=== PATIENT | female | born 1980 | race American Indian/Alaskan Native ===

== ENCOUNTER 2018-01-14 03:41 | Emergency (ER) | payer OTHER ==
[2018-01-14] MEDS ORDERED: ZOFRAN ONE (05:11)
[2018-01-14] MEDS ORDERED: TORADOL ONE (05:11)
[2018-01-14] MEDS ORDERED: SODIUM CHLORIDE FLUSH SYRINGE 10 ML IV PRN (05:19)
[2018-01-14] MEDS ORDERED: ZOFRAN IV ONE (05:30)
[2018-01-14] MEDS ORDERED: TORADOL IV ONE (05:31)
--- NOTE | 2018-01-14 05:36 | Emergency Department Report ---
Stated Complaint: CHEST PAIN - HPI History of Present Illness: 37-year-old [place] female comes to the emergency room complaining of chest pain/upper abdominal pain. Patient reports that the pain woke her up this morning. She reports the pain is a 10 out of 10. Patient has no past medical history of any cardiac issues. - ROS Review of Systems: Chest pain/upper abdominal pain that she feels worse in her back Nausea/vomiting - Exam Vital Signs: Vital Signs 01/14/18 04:13 Temperature 97.9 F Pulse Rate 74 Respiratory 16 Rate Blood Pressure 103/70 [Right] O2 Sat by Pulse 100 Oximetry Physical Exam: Patient's alert and oriented appears to be uncomfortable. Tearful Normocephalic atraumatic Pupils are equal round react to light and accommodation. Heart: S1-S2 regular rate and rhythm no murmurs appreciated Respiratory clear truck station bilateral, reproducible midsternal chest tenderness MSE screening note: Focused history and physical exam performed. Due to findings the following was ordered: Labs have been ordered chest x-ray, EKGs been ordered. IV Toradol and Zofran. Patient will be evaluated by the main ER ED Disposition for MSE Condition: Stable
[2018-01-14 06:03] LABS: Basophils % (Auto) 0.3 % (0.0-1.8); Eosinophils % (Auto) 0.1 % (0.0-4.3); Hematocrit 42.6 % (30.3-42.9); Hemoglobin 14.6 gm/dl (10.1-14.3); Lymphocytes # (Auto) 0.9 K/mm3 (1.2-5.4); Lymphocytes % (Auto) 8.6 % (13.4-35.0); Mean Corpuscular HGB Conc 34 % (30-34); Mean Corpuscular Hemoglobin 30 pg (28-32); Mean Corpuscular Volume 86 fl (79-97); Monocytes # (Auto) 0.5 K/mm3 (0.0-0.8); Monocytes % (Auto) 4.5 % (0.0-7.3); Platelet Count 228 K/mm3 (140-440); Red Blood Count 4.94 M/mm3 (3.65-5.03); Red Cell Distribution Width 13.5 % (13.2-15.2)
--- NOTE | 2018-01-14 06:31 | XRay Report ---
FINAL REPORT EXAM: XR CHEST 1V AP HISTORY: Chest Pain TECHNIQUE: A single view the chest was obtained. FINDINGS: Heart size and mediastinum appear normal. The lungs are clear. Pleural fluid is not seen. The bones and soft tissues are well maintained. IMPRESSION: No active chest disease.
[2018-01-14 06:48] LABS: BUN/Creatinine Ratio 20; Blood Urea Nitrogen 10 mg/dL (7-17); Calcium 9.3 mg/dL (8.4-10.2); Hemolysis Index 8
[2018-01-14 07:47] LABS: INR 0.86 (0.87-1.13)
[2018-01-14 07:48] LABS: Partial Thromboplastin Time 31.4 Sec. (24.2-36.6)
[2018-01-14 11:32] VITALS: BP 112/48
[2018-01-14] MEDS ORDERED: BENTYL PO ONE (11:55)
[2018-01-14] MEDS ORDERED: CARAFATE PO ONE (11:55)
[2018-01-14] MEDS ORDERED: PEPCID IV ONE (11:55)
[2018-01-14] MEDS ORDERED: ALUM-MAG HYDROX-SIMETH 200-200-20MG/5ML PO ONE (11:55)
--- NOTE | 2018-01-14 11:56 | Emergency Department Report ---
ED Chest Pain HPI - General Chief Complaint: Chest Pain Stated Complaint: CHEST PAIN Time Seen by Provider: 01/14/18 11:36 Source: patient, RN notes reviewed, old records reviewed Mode of arrival: Ambulatory Limitations: No Limitations - History of Present Illness Initial Comments: This is a 37-year-old female. The patient is previously unknown to this provider. She does not have a primary care doctor. She denies chronic medical conditions. Patient presents to the ER with a complaint of epigastric and subxiphoid chest pain, that radiated down to the epigastric region. The chest pain has been intermittent since 12:00 in the morning. He does not have exacerbating or relieving factors. She vomited 2, but has no shortness of breath or diaphoresis. There is no leg pain, no leg swelling, no DVT or pulmonary embolus risk factors, no recent cocaine use, no recent aspirin use, patient given Zofran and Toradol prior to my evaluation which improved her symptoms. Her symptoms do not have exacerbating or relieving factors otherwise. There is no family history of cardiovascular disease that she is aware of. MD Complaint: chest pain -: Gradual Pain Location: substernal, epigastric Pain Radiation: abdomen Severity scale (0 -10): 10 Quality: aching Consistency: intermittent Improves With: medication-other Worsens With: nothing re: nausea, vomting. denies: diaphoresis, dyspnea, sense of impending doom Treatments Prior to Arrival: aspirin - Related Data Previous Rx's Medication Instructions Recorded Last Taken Type Acetaminophen [Tylenol Arthritis] 650 mg PO Q6HR PRN #30 tablet.er 01/14/18 Unknown Rx Aspirin [Aspirin BABY CHEW TAB] 81 mg PO QDAY #30 tab.chew 01/14/18 Unknown Rx Famotidine [Pepcid] 20 mg PO BID #30 tablet 01/14/18 Unknown Rx Ondansetron [Zofran Odt] 4 mg PO Q8HR PRN #20 tab.rapdis 01/14/18 Unknown Rx Allergies Allergy/AdvReac Type Severity Reaction Status Date / Time No Known Allergies Allergy Verified 01/14/18 05:32 Heart Score - HEART Score History: Slightly suspicious EKG: Non-specific Age: < 45 Risk factors: No known risk factors Troponin: < normal limit HEART Score: 1 - Critical Actions Critical Actions: 0-3 pts:0.9-1.7%risk of adverse cardiac event.Candidate for discharge ED Review of Systems ROS: Stated complaint: CHEST PAIN Other details as noted in HPI Constitutional: denies: fever Eyes: denies: vision change ENT: denies: epistaxis Respiratory: denies: cough, shortness of breath Cardiovascular: chest pain Gastrointestinal: abdominal pain, nausea, vomiting Genitourinary: denies: dysuria Musculoskeletal: denies: back pain Skin: denies: lesions Neurological: denies: weakness ED Past Medical Hx - Past Medical History Previous Medical History?: No - Surgical History Past Surgical History?: Yes Additional Surgical History: X1 - Social History Smoking Status: Current Every Day Smoker Substance Use Type: None - Medications Home Medications: Home Medications Medication Instructions Recorded Confirmed Last Taken Type Acetaminophen [Tylenol Arthritis] 650 mg PO Q6HR PRN #30 tablet.er 01/14/18 Unknown Rx Aspirin [Aspirin BABY CHEW TAB] 81 mg PO QDAY #30 tab.chew 01/14/18 Unknown Rx Famotidine [Pepcid] 20 mg PO BID #30 tablet 01/14/18 Unknown Rx Ondansetron [Zofran Odt] 4 mg PO Q8HR PRN #20 tab.rapdis 01/14/18 Unknown Rx ED Physical Exam - General Limitations: No Limitations General appearance: alert, in no apparent distress - Head Head exam: Present: atraumatic, normocephalic - Eye Eye exam: Present: normal appearance, PERRL, EOMI. Absent: nystagmus - ENT ENT exam: Present: normal exam, normal orophraynx, mucous membranes moist, normal external ear exam - Neck Neck exam: Present: normal inspection, full ROM - Respiratory Respiratory exam: Present: normal lung sounds bilaterally. Absent: respiratory distress - Cardiovascular Cardiovascular Exam: Present: regular rate, normal rhythm, normal heart sounds. Absent: systolic murmur, diastolic murmur, rubs, gallop - GI/Abdominal GI/Abdominal exam: Present: soft, normal bowel sounds. Absent: distended, tenderness, guarding, rebound, rigid, pulsatile mass - Extremities Exam Extremities exam: Present: normal inspection, full ROM, normal capillary refill. Absent: pedal edema, joint swelling, calf tenderness - Back Exam Back exam: Present: normal inspection, full ROM. Absent: tenderness, CVA tenderness (R), paraspinal tenderness, vertebral tenderness - Neurological Exam Neurological exam: Present: alert, oriented X3, CN II-XII intact, normal gait, other (Extraocular movements intact. Tongue midline. No facial droop. Facial sensation intact to light touch in the V1, V2, V3 distribution bilaterally. 5 and 5 strength in 4 extremities.. Sensation is intact to light touch in 4 extremities.). Absent: motor sensory deficit - Psychiatric Psychiatric exam: Present: normal affect, normal mood - Skin Skin exam: Present: warm, dry, intact, normal color. Absent: rash ED Course Vital Signs 01/14/18 01/14/18 04:13 11:31 Temperature 97.9 F Pulse Rate 74 88 Respiratory 16 16 Rate Blood Pressure 103/70 112/48 [Right] O2 Sat by Pulse 100 98 Oximetry LAURA score - Laura Score Age > 65: (0) No Aspirin use within the Past 7 Days: (0) No 3 or more CAD Risk Factors: (0) No 2 or more Angina events in past 24 hrs: (0) No Known CAD with more than 50% Stenosis: (0) No Elevated Cardiac Markers: (0) No ST Deviation Greater than 0.5mm: (0) No LAURA Score: 0 ED Medical Decision Making - Lab Data Result diagrams: 01/14/18 05:51 01/14/18 05:51 Vital Signs 01/14/18 01/14/18 04:13 11:31 Temperature 97.9 F Pulse Rate 74 88 Respiratory 16 16 Rate Blood Pressure 103/70 112/48 [Right] O2 Sat by Pulse 100 98 Oximetry Lab Results 01/14/18 01/14/18 01/14/18 Range/Units 05:51 05:51 05:51 WBC 10.3 (4.5-11.0) K/mm3 RBC 4.94 (3.65-5.03) M/mm3 Hgb 14.6 H (10.1-14.3) gm/dl Hct 42.6 (30.3-42.9) % MCV 86 (79-97) fl MCH 30 (28-32) pg MCHC 34 (30-34) % RDW 13.5 (13.2-15.2) % Plt Count 228 (140-440) K/mm3 Lymph % (Auto) 8.6 L (13.4-35.0) % Mower % (Auto) 4.5 (0.0-7.3) % Eos % (Auto) 0.1 (0.0-4.3) % Baso % (Auto) 0.3 (0.0-1.8) % Lymph # 0.9 L (1.2-5.4) K/mm3 Mower # 0.5 (0.0-0.8) K/mm3 Eos # 0.0 (0.0-0.4) K/mm3 Baso # 0.0 (0.0-0.1) K/mm3 Seg Neutrophils % 86.5 H (40.0-70.0) % Seg Neutrophils # 8.9 H (1.8-7.7) K/mm3 PT (12.2-14.9) Sec. INR (0.87-1.13) APTT (24.2-36.6) Sec. Sodium 138 (137-145) mmol/L Potassium 3.9 (3.6-5.0) mmol/L Chloride 99.0 (98-107) mmol/L Carbon Dioxide 25 (22-30) mmol/L Anion Gap 18 mmol/L BUN 10 (7-17) mg/dL Creatinine 0.5 L (0.7-1.2) mg/dL Estimated GFR > 60 ml/min BUN/Creatinine Ratio 20 % Glucose 128 H (65-100) mg/dL Calcium 9.3 (8.4-10.2) mg/dL Troponin T < 0.010 (0.00-0.029) ng/mL 01/14/18 01/14/18 Range/Units 07:10 12:01 WBC (4.5-11.0) K/mm3 RBC (3.65-5.03) M/mm3 Hgb (10.1-14.3) gm/dl Hct (30.3-42.9) % MCV (79-97) fl MCH (28-32) pg MCHC (30-34) % RDW (13.2-15.2) % Plt Count (140-440) K/mm3 Lymph % (Auto) (13.4-35.0) % Mower % (Auto) (0.0-7.3) % Eos % (Auto) (0.0-4.3) % Baso % (Auto) (0.0-1.8) % Lymph # (1.2-5.4) K/mm3 Mower # (0.0-0.8) K/mm3 Eos # (0.0-0.4) K/mm3 Baso # (0.0-0.1) K/mm3 Seg Neutrophils % (40.0-70.0) % Seg Neutrophils # (1.8-7.7) K/mm3 PT 12.1 L (12.2-14.9) Sec. INR 0.86 L (0.87-1.13) APTT 31.4 (24.2-36.6) Sec. Sodium (137-145) mmol/L Potassium (3.6-5.0) mmol/L Chloride (98-107) mmol/L Carbon Dioxide (22-30) mmol/L Anion Gap mmol/L BUN (7-17) mg/dL Creatinine (0.7-1.2) mg/dL Estimated GFR ml/min BUN/Creatinine Ratio % Glucose (65-100) mg/dL Calcium (8.4-10.2) mg/dL Troponin T < 0.010 (0.00-0.029) ng/mL - EKG Data -: EKG Interpreted by Id EKG shows normal: sinus rhythm, axis, intervals, QRS complexes Rate: normal - EKG Data When compared to previous EKG there are: previous EKG unavailable Interpretation: nonspecific ST-T wave debra 01/14/18 12:46 Not consistent with a STEMI. 68 bpm, poor R-wave progression. Abnormal EKG. EKG is unchanged 2. - Radiology Data Radiology results: report reviewed, image reviewed x-ray of the chest is negative for acute disease - Medical Decision Making Differential diagnosis, including not limited to: Acute coronary syndrome, GERD , gastritis, hiatal hernia, pancreatitis pneumonia Assessment and plan: 37-year-old female with chest pain with no pulmonary embolus or DVT risk factors she is low risk by well's criteria, she is low risk LAURA score, she is low risk by heart score, troponin negative 2, EKG unchanged 2, perc negative The patient's abdomen is soft and benign with no rebound, guarding or peritoneal signs, and she has been observed in the emergency room for hours without clinical decompensation. The patient is low risk for major adverse cardiac outcome, and she is suitable to follow up with outpatient work station support specialist for an outpatient stress test and risk stratification. Critical care attestation.: If time is entered above; I have spent that time in minutes in the direct care of this critically ill patient, excluding procedure time. ED Disposition Clinical Impression: Chest pain Disposition: [id number] TO HOME OR SELFCARE Is pt being admited?: No Does the pt Need Aspirin: No Condition: Stable Instructions: Chest Pain (ED) Additional Instructions: Take the pain medications as directed. Avoid consumption of heavy foods, spicy foods, Naprosyn, Motrin, Aleve, alcohol. Follow up with a work station support specialist as listed within the next 3-5 days for outpatient cardiac stress test. Return to the ER right away with new pain, worsened pain, migration of pain, fevers, chills, lethargy, irritability, projectile vomiting, change in mental status, confusion, inability to tolerate liquid feeds. Referrals: PRIMARY CARE, [Primary Care Provider] - 3-5 Days [facility] [Provider Group] - 3-5 Days [facility] [Provider Group] - 3-5 Days
== END 2018-01-14 13:40 | disposition home or self-care (01) ==
LOC: ED 03:41
DX: R07.89 Other chest pain (principal); R10.13 Epigastric pain; R11.2 Nausea with vomiting, unspecified; F17.200 Nicotine dependence, unspecified, uncomplicated
CPT/HCPCS: 36415; 71045; 80048; 83690; 84484; 85025; 85610; 85730; 93005; 93010; 96374; 96375; 99284; J1885; J2405

== ENCOUNTER 2021-05-08 04:57 | Emergency (ER) | payer OTHER ==
[2021-05-08 05:53] VITALS: BP 137/66
== END 2021-05-09 16:40 ==
LOC: ED 04:57
DX: R10.10 Upper abdominal pain, unspecified (principal); Z53.21 Procedure and treatment not carried out due to patient leaving prior to being seen by health care provider

== ENCOUNTER 2022-05-23 21:08 | Emergency (ER) | payer OTHER ==
[2022-05-24 02:03] VITALS: BP 120/76
== END 2022-05-24 05:30 | disposition left against medical advice (07) ==
LOC: ED 21:08
DX: R07.9 Chest pain, unspecified (principal); Z53.21 Procedure and treatment not carried out due to patient leaving prior to being seen by health care provider